=== PATIENT | female | born 1970 | race Caucasian/White ===

== ENCOUNTER 2018-01-10 22:14 | Emergency (ER) | payer BC ==
[2018-01-10] MEDS ORDERED: NA CHLORIDE 0.9% 1,000 ML ONE (23:30)
[2018-01-10 23:31] LABS: Absolute Lymphocytes (CBC) 3.1 K/uL (0.7-4.9); Absolute Monocytes 0.5 K/uL (0.1-1.3); Absolute Neutrophil 2.5 K/uL (1.8-8.0); Basophils % 0.8 % (0-1.3); Eosinophils % 2.7 % (0-4.4); Hematocrit 40.3 % (36.0-45.0); Lymphocytes % 48.4 % (15.3-44.8); MCH 32.1 pg (27.0-35.0); MCV 94.2 fL (80-100); MPV 8.8 fL (7.6-11.3); Monocytes % 8.6 % (3.3-12.3); RBC Red Blood Cell Count 4.28 M/uL (3.86-4.86)
[2018-01-10 23:44] LABS: Protime INR 0.9
[2018-01-10 23:52] LABS: Potassium 3.9 mEq/L (3.6-5.0)
[2018-01-10 23:58] LABS: Albumin 4.4 g/dL (3.2-5.5); Bilirubin Direct 0.1 mg/dL (0-0.2); Bilirubin Total 0.4 mg/dL (0.3-1.2); Protein, Total 7.3 g/dL (6.0-8.3)
[2018-01-11 00:02] LABS: CKMB Creatine Kinase MB 3.7 ng/ml (0.3-4.0)
--- NOTE | 2018-01-11 01:26 | ER ---
Nurse's Notes [facility] Name: Phil Camarena Age: 47 yrs Sex: Female : 1970 Arrival Date: 01/10/2018 Time: 22:22 Bed 17 Private MD: Diagnosis: Chest pain Presentation: 01/10 22:50 Presenting complaint: Patient states: "I was laying down and all of a sudden I got jd3 short of breath with chest tightness and had to sit up. the feeling didn't go away so I decided I needed to get it looked at especially with a family history of heart problems.". Transition of care: patient was not received from another setting of care. Onset of symptoms was January 10, 2018. Care prior to arrival: None. 22:50 Method Of Arrival: Ambulatory jd3 22:50 Acuity: BRAD 3 jd3 Triage Assessment: 22:58 Respiratory: Reports shortness of breath the patient has mild shortness of breath. 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 - Social history:: Smoking status: Patient/guardian denies using tobacco, Patient/guardian denies using alcohol, street drugs. Screenin:58 Abuse screen: Denies threats or abuse. Nutritional screening: No deficits noted. jd3 Tuberculosis screening: No symptoms or risk factors identified. Fall Risk Gait- Weak (10 pts.). Total Santana Fall Scale indicates No Risk (0-24 pts). Assessment: 22:46 General: Appears uncomfortable, Behavior is calm, cooperative, appropriate for age. jd3 Pain: Complains of pain in chest Pain currently is 3 out of 10 on a pain scale. Quality of pain is described as aching, pressure, Pain began 1 hour ago. Neuro: Level of Consciousness is awake, alert, obeys commands, Oriented to person, place, time, situation. Cardiovascular: Heart tones S1 S2 present Capillary refill < 3 seconds Patient's skin is warm and dry. Rhythm is sinus bradycardia. Respiratory: Airway is patent Respiratory effort is even, unlabored, Respiratory pattern is regular, symmetrical, Breath sounds are clear bilaterally. GI: Abdomen is round Patient currently denies abdominal pain, diarrhea, nausea, vomiting. : No signs and/or symptoms were reported regarding the genitourinary system. EENT: No signs and/or symptoms were reported regarding the EENT system. Derm: Skin is intact, Skin is dry, Skin is normal, Skin temperature is warm. Musculoskeletal: Circulation, motion, and sensation intact. Range of motion: intact in all extremities. 23:45 Reassessment: Patient appears in no apparent distress at this time. Patient and/or jd3 family updated on plan of care and expected duration. Pain level reassessed. Patient is alert, oriented x 3, equal unlabored respirations, skin warm/dry/pink. 01/11 00:18 Reassessment: Patient appears in no apparent distress at this time. Patient and/or jd3 family updated on plan of care and expected duration. Pain level reassessed. Patient is alert, oriented x 3, equal unlabored respirations, skin warm/dry/pink. 01:18 Reassessment: Patient appears in no apparent distress at this time. Patient and/or jd3 family updated on plan of care and expected duration. Pain level reassessed. Patient is alert, oriented x 3, equal unlabored respirations, skin warm/dry/pink. pt with even and steady gait when ambulating. 01:38 Reassessment: Patient appears in no apparent distress at this time. Patient and/or jd3 family updated on plan of care and expected duration. Pain level reassessed. Patient is alert, oriented x 3, equal unlabored respirations, skin warm/dry/pink. pt reported understanding of discharge instructions, even and steady gait upon discharge. Vital Signs: 01/10 22:56 BP 136 / 83; Pulse 61; Resp 18 S; Temp 97.9(O); Pulse Ox 99% on R/A; Weight 77.11 kg jd3 (R); Height 5 ft. 3 in. (160.02 cm) (R); Pain 3/10; 01/11 00:17 BP 102 / 53; Pulse 57; Resp 17 S; Pulse Ox 98% on R/A; Pain 0/10; jd3 01:19 BP 122 / 89; Pulse 58; Resp 17 S; Pulse Ox 99% on R/A; Pain 0/10; jd3 01/10 22:56 Body Mass Index 30.11 (77.11 kg, 160.02 cm) jd3 ED Course: 01/10 22:22 Patient arrived in ED. ds1 22:46 Abad Jade RN is Primary Nurse. jd3 22:53 Nikhil Wadsworth MD is Attending Physician. pkl 22:54 Triage completed. jd3 22:55 EKG done, by ED staff. cb2 22:57 Arm band placed on. jd3 22:58 Patient has correct armband on for positive identification. Placed in gown. Bed in low jd3 position. Call light in reach. Side rails up X 1. Adult w/ patient. 23:19 Inserted saline lock: 20 gauge in left antecubital area, using aseptic technique. Blood jd3 collected. placed by die barber. 23:38 X-ray completed. Portable x-ray completed in exam room. Patient tolerated procedure kw well. 23:39 XRAY Chest (1 view) In Process Unspecified. EDMS 01/11 01:24 Prince Brumfield MD is Referral Physician. pkl 01:24 No provider procedures requiring assistance completed. jd3 01:37 IV discontinued, intact, bleeding controlled, No redness/swelling at site. Pressure jd3 dressing applied. Administered Medications: 01/10 23:23 Drug: NS 0.9% 1000 ml Route: IV; Rate: 100 ml/hr; Site: left antecubital; jd3 01/11 01:38 Follow up: Response: No adverse reaction; IV Status: Completed infusion; IV Intake: jd3 1000ml Intake: 01:38 IV: 1000ml; Total: 1000ml. jd3 Outcome: 01:25 Discharge ordered by . pkl 01:37 Discharged to home ambulatory, with family. jd3 01:37 Condition: stable 01:37 Discharge instructions given to patient, family, Instructed on discharge instructions, follow up and referral plans. Demonstrated understanding of instructions, follow-up care. 01:39 Patient left the ED. jd3 Signatures: Dispatcher [employer] EDWY Nikhil Wadsworth MD MD pkl Ting Wright ds1 Stefania Coppola Christian cb2 Abad Jade RN RN jd3 Corrections: (The following items were deleted from the chart) 01/10 22:58 22:46 Cardiovascular: Heart tones S1 S2 present Capillary refill < 3 seconds Patient's jd3 skin is warm and dry. jd3
--- NOTE | 2018-01-11 01:26 | EDPHYS ---
Physician Documentation [facility] Name: Phil Camarena Age: 47 yrs Sex: Female : 1970 Arrival Date: 01/10/2018 Time: 22:22 Bed 17 Private MD: ED Physician Nikhil Wadsworth HPI: 01/10 23:06 This 47 yrs old Female presents to ER via Ambulatory with complaints of pkl Dizziness, Doesn't Feel Right, Shortness Of Breath. 23:06 The patient or guardian reports chest pain that is located primarily in the substernal pkl area. Onset: just prior to arrival, 3 hour(s) ago. The pain does not radiate. Associated signs and symptoms: Pertinent positives: dizziness. The chest pain is described as tightness. 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 - Social history:: Smoking status: Patient/guardian denies using tobacco, Patient/guardian denies using alcohol, street drugs. ROS: 23:06 Eyes: Negative for injury, pain, redness, and discharge, ENT: Negative for injury, pkl pain, and discharge, Neck: Negative for injury, pain, and swelling. 23:06 Cardiovascular: Positive for chest pain. 23:06 Respiratory: Positive for shortness of breath. 23:06 Abdomen/GI: Negative for abdominal pain, nausea, vomiting, and diarrhea. 23:06 Back: Negative for acute changes. 23:06 : Negative for urinary symptoms. 23:06 MS/extremity: Negative for acute changes. 23:06 Skin: Negative for rash. 23:06 Neuro: Negative for altered mental status. Exam: 23:06 Eyes: Pupils equal round and reactive to light, extra-ocular motions intact. Lids and pkl lashes normal. Conjunctiva and sclera are non-icteric and not injected. Cornea within normal limits. Periorbital areas with no swelling, redness, or edema. ENT: Nares patent. No nasal discharge, no septal abnormalities noted. Tympanic membranes are normal and external auditory canals are clear. Oropharynx with no redness, swelling, or masses, exudates, or evidence of obstruction, uvula midline. Mucous membranes moist. Neck: Trachea midline, no thyromegaly or masses palpated, and no cervical lymphadenopathy. Supple, full range of motion without nuchal rigidity, or vertebral point tenderness. No Meningismus. Chest/axilla: Normal chest wall appearance and motion. Nontender with no deformity. No lesions are appreciated. Cardiovascular: Regular rate and rhythm with a normal S1 and S2. No gallops, murmurs, or rubs. Normal PMI, no JVD. No pulse deficits. Respiratory: Lungs have equal breath sounds bilaterally, clear to auscultation and percussion. No rales, rhonchi or wheezes noted. No increased work of breathing, no retractions or nasal flaring. Abdomen/GI: Soft, non-tender, with normal bowel sounds. No distension or tympany. No guarding or rebound. No evidence of tenderness throughout. Back: No spinal tenderness. No costovertebral tenderness. Full range of motion. Skin: Warm, dry with normal turgor. Normal color with no rashes, no lesions, and no evidence of cellulitis. MS/ Extremity: Pulses equal, no cyanosis. Neurovascular intact. Full, normal range of motion. 23:06 Neuro: Orientation: is normal, Mentation: is normal, Memory: is normal, Cranial nerves: grossly normal, Cerebellar function: normal finger to nose testing, heel to french testing is normal, Motor: is normal, Sensation: is normal, Gait: is steady. Vital Signs: 22:56 BP 136 / 83; Pulse 61; Resp 18 S; Temp 97.9(O); Pulse Ox 99% on R/A; Weight 77.11 kg jd3 (R); Height 5 ft. 3 in. (160.02 cm) (R); Pain 3/10; 01/11 00:17 BP 102 / 53; Pulse 57; Resp 17 S; Pulse Ox 98% on R/A; Pain 0/10; jd3 01:19 BP 122 / 89; Pulse 58; Resp 17 S; Pulse Ox 99% on R/A; Pain 0/10; jd3 01/10 22:56 Body Mass Index 30.11 (77.11 kg, 160.02 cm) jd3 MDM: 01/10 22:53 Patient medically screened. pkl 01/11 01:24 Data reviewed: vital signs, nurses notes, lab test result(s), EKG, radiologic studies, pkl plain films. 01/10 23:04 Order name: Basic Metabolic Panel pkl 01/10 23:04 Order name: BNP; Complete Time: 00:11 pkl 01/10 23:04 Order name: CBC with Diff; Complete Time: 00:11 pkl 01/10 23:04 Order name: Ckmb; Complete Time: 00:11 pkl 01/10 23:04 Order name: CPK; Complete Time: 00:11 pkl 01/10 23:04 Order name: LFT's; Complete Time: 00:11 pkl 01/10 23:04 Order name: Magnesium; Complete Time: 00:11 pkl 01/10 23:04 Order name: PT-INR; Complete Time: 00:11 pkl 01/10 23:04 Order name: Ptt, Activated; Complete Time: 00:11 pkl 01/10 23:04 Order name: Troponin (emerg Dept Use Only); Complete Time: 00:11 pkl 01/10 23:04 Order name: Basic Metabolic Panel; Complete Time: 00:11 EDMS 01/11 00:27 Order name: Troponin (emerg Dept Use Only) pkl 01/11 00:27 Order name: Troponin (Emerg Dept Use Only); Complete Time: 01:10 EDMS 01/11 00:31 Order name: Urine Dipstick--Ancillary (enter results); Complete Time: 02:01 rg2 01/10 23:04 Order name: XRAY Chest (1 view) pkl 01/10 23:04 Order name: EKG; Complete Time: 23:04 pkl 01/10 23:04 Order name: Cardiac monitoring; Complete Time: 23:08 pkl 01/10 23:04 Order name: EKG - Nurse/Tech; Complete Time: 23:06 pkl 01/10 23:04 Order name: IV Saline Lock; Complete Time: 23:24 pkl 01/10 23:04 Order name: Labs collected and sent; Complete Time: 23:23 pkl 01/10 23:04 Order name: O2 Per Protocol; Complete Time: 23:07 pkl 01/10 23:04 Order name: O2 Sat Monitoring; Complete Time: 23:07 pkl 01/10 23:04 Order name: Urine Dipstick-Ancillary (obtain specimen); Complete Time: 00:54 pkl 01/11 00:27 Order name: EKG; Complete Time: 00:27 pkl Administered Medications: 01/10 23:23 Drug: NS 0.9% 1000 ml Route: IV; Rate: 100 ml/hr; Site: left antecubital; jd3 01/11 01:38 Follow up: Response: No adverse reaction; IV Status: Completed infusion; IV Intake: jd3 1000ml Disposition: 01/11/18 01:25 Discharged to Home. Impression: Chest pain. - Condition is Stable. - Medication Reconciliation Form, Thank You Letter, Antibiotic Education, Prescription Opioid Use, Family Work Release form. - Follow up: Prince Brumfield MD; When: 2 - 3 days; Reason: Re-evaluation by your physician. - Problem is new. - Symptoms are resolved. Signatures: Dispatcher [employer] Nikhil Sanchez MD MD pkAbad Jaime RN RN jd3
[2018-01-11 01:27] LABS: Urine Blood NEGATIVE (NEG); Urine Glucose NEGATIVE (NEG); Urine Protein NEGATIVE (NEG); Urine pH 7.5 (5.0-7.0)
--- NOTE | 2018-01-11 07:05 | EKG ---
Test Date: 2018-01-11 Test Time: 00:33:30 Professional [employer] Fisher: BRY MEASUREMENT RESULTS: Intervals: Rate: 49 [place]: 174 QRSD: 90 QT: 426 QTc: 384 [place]: P: 37 [place]: 174 QRS: 63 T: 59 INTERPRETIVE STATEMENTS: Sinus bradycardia Nonspecific T wave abnormality Abnormal ECG Compared to ECG 01/10/2018 22:51:55 T-wave abnormality now present Electronically Signed On 01-11-18 07:04:56 CDT by Lavell García
--- NOTE | 2018-01-11 07:05 | EKG ---
Test Date: 2018-01-10 Test Time: 22:51:55 Gear Shaper: ARIANE MEASUREMENT RESULTS: Intervals: Rate: 58 [place]: 170 QRSD: 88 QT: 418 QTc: 410 [place]: P: 42 [place]: 170 QRS: 69 T: 63 INTERPRETIVE STATEMENTS: Sinus bradycardia Otherwise normal ECG No previous ECG available for comparison Electronically Signed On 01-11-18 07:04:59 CDT by Lavell García
--- NOTE | 2018-01-11 07:38 | RAD REPORT ---
EXAM DESCRIPTION: RAD - Chest Single View - 01/10/2018 11:39 pm CLINICAL HISTORY: Chest pain, shortness of breath COMPARISON: None. TECHNIQUE: AP portable chest image was obtained 2317 hours . FINDINGS: Lungs are clear. Heart and vasculature are normal. No measurable pleural effusion and no p neumothorax. No gross bony abnormality seen. No acute aortic findings suspected. IMPRESSION: No acute cardiopulmonary process.
== END 2018-01-11 01:39 | disposition home or self-care (01) ==
LOC: ER 22:14
DX: R07.9 Chest pain, unspecified (principal); E78.00 Pure hypercholesterolemia, unspecified
CPT/HCPCS: 36415; 71045; 80048; 80076; 81003; 82550; 82553; 83735; 83880; 84484; 85025; 85610; 85730; 93005; 96360; 96361; 99284; J7030